=== PATIENT | male | born 1985 | race American Indian/Alaskan Native ===

== ENCOUNTER 2017-09-14 13:10 | Emergency (ER) | payer OTHER ==
[2017-09-14 13:46] VITALS: BP 142/84
[2017-09-14 16:05] LABS: Bacteria,Urine 1+ /HPF (Negative); Bilirubin,Urine NEG (Negative); Blood,Urine SM (Negative); Ketones,Urine TR mg/dL (Negative); Leukocyte Esterase,Urine LG (Negative); Mucus,Urine 3+ /HPF; Nitrite,Urine NEG (Negative); Sperm,Urine FEW /HPF (NP); WBC,Urine > 182.0 /HPF (0.0-6.0)
[2017-09-14] MEDS ORDERED: ZITHROMAX PO ONE (16:11)
[2017-09-14] MEDS ORDERED: XYLOCAINE 1% MPF 5 mL INFILTRATI ONE (16:11)
[2017-09-14] MEDS ORDERED: FLAGYL PO ONE (16:11)
[2017-09-14] MEDS ORDERED: ROCEPHIN IM ONE (16:11)
--- NOTE | 2017-09-14 16:14 | Emergency Department Report ---
HPI - General Chief Complaint: Urogenital-Male Time Seen by Provider: 09/14/17 16:00 - [facility] HPI: There is a 32-year-old male who presents to ED complaining of dysuria and penile discharge. Patient states he started expressing pain with urination about 4 days ago. He states he noticed a whitish discharge today. Patient states she he's in one relationship with his female partner and last intercourse was last week. He denies any fever/chills/nausea/vomiting/ testicular or scrotal pain or penile pain. ED Past Medical Hx - Past Medical History Previous Medical History?: Yes Hx Asthma: Yes - Surgical History Past Surgical History?: No - Social History Smoking Status: Never Smoker Substance Use Type: Alcohol - Medications Home Medications: Home Medications Medication Instructions Recorded Confirmed Last Taken Type Ciprofloxacin HCl [Ciprofloxacin 500 mg PO Q12HR #14 tab 09/14/17 Unknown Rx TAB] ED Review of Systems ROS: Stated complaint: UROGENTELIA-MALE Other details as noted in HPI Constitutional: denies: chills, fever Eyes: denies: eye pain, eye discharge, vision change ENT: denies: ear pain, throat pain Respiratory: denies: cough, shortness of breath, wheezing Cardiovascular: denies: chest pain, palpitations Endocrine: no symptoms reported Gastrointestinal: denies: abdominal pain, nausea, vomiting, diarrhea, constipation, hematemesis Genitourinary: dysuria, discharge. denies: urgency, frequency, hematuria, testicular pain, testicular mass Musculoskeletal: denies: back pain, joint swelling, arthralgia Skin: denies: rash, lesions, pruritus Neurological: denies: headache, weakness, paresthesias Physical Exam - Physical Exam Vital Signs: Vital Signs 09/14/17 13:42 Temperature 97.8 F Pulse Rate 70 Respiratory 16 Rate Blood Pressure 142/84 O2 Sat by Pulse 95 Oximetry Physical Exam: GENERAL: Alert and oriented x3, no apparent distress, Normal Gait, atraumatic. HEAD: Head is normocephalic and a-traumatic. ABDOMEN: No organomegaly was noted,Positive bowel sounds, soft, and non- distended. . Nontender to palpation on all Quadrants, NO CVA tenderness. BACK: Full range of motion, no spinal tenderness, nontender to palpation. UROGENITAL: No scrotal mass, Scrotum non tender to palpation bilaterally, no hernia, no scars or penile discharge. NEUROLOGIC: The patient is cooperative with no focal neurologic deficits. SKIN: Warm and dry, No lesions, No ulceration or induration present. ED Course Vital Signs 09/14/17 13:42 Temperature 97.8 F Pulse Rate 70 Respiratory 16 Rate Blood Pressure 142/84 O2 Sat by Pulse 95 Oximetry ED Medical Decision Making - Medical Decision Making 32-year-old male presents with STD exposure. ED course: urinalysis and gonorrhea and Chlamydia cultures obtained. Urinalysis positive for leukorrhea bacteria, trace leuk est Patient received 250 mg of Rocephin, azithromycin 1 g, Flagyl 2 g. he will be sent home on Cipro twice a day for 7 days for his UTI bacterial infection Discussed with patient possible STD due to exposure. Discussed with patient findings and treatment. I discussed the patient had a CT result does not come back today and need to call back for results but will be treated today Discussed prophylaxis treatment patient is to abstain from sex 7-10 days as treatment. Discussed patient partner knowledge and treatment. Discussed the follow-up with the health department for further STD testing. Patient's alert and oriented times 3. Vital signs are normal patient is in no acute discharge. Patient will be discharged home with instructions. Critical care attestation.: If time is entered above; I have spent that time in minutes in the direct care of this critically ill patient, excluding procedure time. ED Disposition Clinical Impression: STD (sexually transmitted disease) UTI (urinary tract infection) Qualifiers: Urinary tract infection type: acute cystitis Hematuria presence: with hematuria Qualified Code(s): N30.01 - Acute cystitis with hematuria Disposition: TO HOME OR SELFCARE Is pt being admited?: No Does the pt Need Aspirin: No Condition: Stable Instructions: Dysuria (ED), Urinary Tract Infection in Men (ED), Sexually Transmitted Diseases (ED), Safe Sex (ED) Additional Instructions: Make sure to follow up with the primary care physician as discussed. Take all your medications as you've been prescribed. If you have any worsening symptoms or develop new symptoms please return to ED immediately. You were treated for STD infection today. Follow-up with the health department for further STD testing Prescriptions: Ciprofloxacin HCl [Ciprofloxacin TAB] 500 mg PO Q12HR #14 tab Referrals: PRIMARY CARE, [Primary Care Provider] - 3-5 Days [facility] [Outside] - 3-5 Days [facility] [Outside] - 3-5 Days [facility] [Outside] - 3-5 Days [facility] [Outside] - 3-5 Days Forms: Work/School Release Form(ED) Time of Disposition: 16:21
== END 2017-09-14 17:22 | disposition home or self-care (01) ==
LOC: ED 13:10
DX: A64 Unspecified sexually transmitted disease (principal); N30.01 Acute cystitis with hematuria; J45.909 Unspecified asthma, uncomplicated
CPT/HCPCS: 81001; 87086; 87591; 96372; 99283; J0696

== ENCOUNTER 2018-10-12 22:19 | Emergency (ER) | payer SELFPAY ==
[2018-10-12] MEDS ORDERED: DUONEB *Not for PRN Use IH ONE ×2 (22:50→22:57)
--- NOTE | 2018-10-12 23:20 | Emergency Department Report ---
Minor Respiratory - HPI Chief Complaint: Dyspnea/Respdistress Stated Complaint: DIFFICULTY BREATHING Time Seen by Provider: 10/12/18 23:02 Minor Respiratory: Yes Able to Tolerate Fluids, Yes Cough (dry, mild), No Rhinorrhea, No Sore Throat, No Ear Pain, No Sick Contacts, No Hemoptysis, No Chest Pain, No Shortness of Breath Other History: This is a 33-year-old male with a history of asthma who has run out of his inhaler and nebulizer treatment last night. Patient presents here complaining of mild dry cough with wheezing. Patient states he usually uses inhalers every day. ED Review of Systems ROS: Stated complaint: DIFFICULTY BREATHING Other details as noted in HPI Constitutional: denies: chills, fever Eyes: denies: eye pain, eye discharge, vision change ENT: denies: ear pain, throat pain Respiratory: denies: cough, shortness of breath, wheezing Cardiovascular: denies: chest pain, palpitations Endocrine: no symptoms reported Gastrointestinal: denies: abdominal pain, nausea, diarrhea Genitourinary: denies: urgency, dysuria Musculoskeletal: denies: back pain, joint swelling, arthralgia Skin: denies: rash, lesions Neurological: denies: headache, weakness, paresthesias Psychiatric: denies: anxiety, depression Hematological/Lymphatic: denies: easy bleeding, easy bruising ED Past Medical Hx - Past Medical History Previous Medical History?: Yes Hx Hypertension: Yes Hx Asthma: Yes - Surgical History Past Surgical History?: Yes Additional Surgical History: eye - Social History Smoking Status: Never Smoker Substance Use Type: Alcohol - Medications Home Medications: Home Medications Medication Instructions Recorded Confirmed Last Taken Type Ciprofloxacin HCl [Ciprofloxacin 500 mg PO Q12HR #14 tab 09/14/17 Unknown Rx TAB] ALBUTEROL Inhaler(NF) [VENTOLIN 1 puff IH BID #1 inha 10/12/18 Unknown Rx Inhaler(NF)] Albuterol Sulfate [Albuterol 0.63% 0.63 mg IH TID PRN #1 pack 10/12/18 Unknown Rx NEBS] predniSONE [Deltasone] 10 mg PO QDAY #5 tab 10/12/18 Unknown Rx Minor Respiratory Exam - Exam General: Vital signs noted. No distress. Alert and acting appropriately. HEENT: Yes Moist Mucous Membranes, No Pharyngeal Erythema, No Pharyngeal Exudates, No Rhinorrhea, No Conjuctival Injection, No Frontal Tenderness, No Maxillary Tenderness Ear: Neither TM Bulge, Neither TM Erythema, Neither EAC Pain, Neither EAC Discharge Neck: Yes Supple, No Adenopathy Lungs: Yes Good Air Exchange, No Wheezes, No Ronchi, No Stridor, No Cough, No Labored Respirations, No Retractions, No Use of Accessory Muscles, No Other Abnormal Lung Sounds Heart: Yes Regular, No Murmur Abdomen: Yes Normal Bowel Sounds, No Tenderness, No Peritoneal Signs Skin: No Rash, No Edema Neurologic: Alert and oriented, no deficits. Musculoskeletal: Unremarkable. ED Course Vital Signs 10/12/18 22:39 Pulse Rate 86 Respiratory 20 Rate Blood Pressure 144/103 O2 Sat by Pulse 96 Oximetry ED Medical Decision Making - Medical Decision Making 33-year-old female presents with asthma exacerbation (Mild) ED course: Patient received a breathing treatment in the ED. Patient had no respiratory distress in the ED. Post treatment evaluation: No wheezing heard, no use of accessory muscles, I discussed with the patient to follow up with her primary care physician. I discussed with the patient will be going home on with albuterol inhaler as well as nebulizer Vital signs are normalized, patient is saturation at 97% on room air. I discussed with the patient is symptoms worsen to return to ED immediately. Critical care attestation.: If time is entered above; I have spent that time in minutes in the direct care of this critically ill patient, excluding procedure time. ED Disposition Clinical Impression: Asthma exacerbation Disposition: DC-01 TO HOME OR SELFCARE Is pt being admited?: No Does the pt Need Aspirin: No Condition: Stable Instructions: Asthma (ED) Additional Instructions: Make sure to follow up with the primary care physician as discussed. Take all your medications as you've been prescribed. If you have any worsening symptoms or develop new symptoms please return to ED immediately. Prescriptions: ALBUTEROL Inhaler(NF) [VENTOLIN Inhaler(NF)] 1 puff IH BID #1 inha Albuterol Sulfate [Albuterol 0.63% NEBS] 0.63 mg IH TID PRN #1 pack PRN Reason: Wheezing predniSONE [Deltasone] 10 mg PO QDAY #5 tab Referrals: [facility] [Outside] - 3-5 Days [facility] [Outside] - 3-5 Days Forms: Work/School Release Form(ED) Time of Disposition: 23:33
[2018-10-13 00:13] VITALS: BP 146/89
== END 2018-10-13 00:10 | disposition home or self-care (01) ==
LOC: ED 22:19
DX: J45.901 Unspecified asthma with (acute) exacerbation (principal); I10 Essential (primary) hypertension; Z88.8 Allergy status to other drugs, medicaments and biological substances; Z91.013 Allergy to seafood
CPT/HCPCS: 94640; 99282

== ENCOUNTER 2018-12-10 15:12 | Emergency (ER) | payer OTHER ==
[2018-12-10 15:32] VITALS: BP 154/97
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
[2018-12-10] MEDS ORDERED: IBUPROFEN ONE (16:59)
[2018-12-10] MEDS ORDERED: IBUPROFEN PO ONE (17:00)
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
== END 2018-12-10 17:09 | disposition home or self-care (01) ==
LOC: ED 15:12
DX: S16.1XXA Strain of muscle, fascia and tendon at neck level, initial encounter (principal); S39.012A Strain of muscle, fascia and tendon of lower back, initial encounter; Z91.041 Radiographic dye allergy status; Z91.013 Allergy to seafood; V49.59XA Passenger injured in collision with other motor vehicles in traffic accident, initial encounter; Y93.89 Activity, other specified; Y92.89 Other specified places as the place of occurrence of the external cause; Y99.8 Other external cause status
CPT/HCPCS: 72040; 72070; 72100